=== PATIENT | male | born 1985 | race Native Hawaiian/Other Pacific Islander ===

== ENCOUNTER 2021-10-27 20:24 | Emergency (ER) | payer OTHER ==
[~2021-10-27] VITALS: Ht 182.9 cm; Wt 86.2 kg
[2021-10-28 00:35] VITALS: BP 122/68; TEMP 97.9
== END 2021-10-28 00:35 | disposition home or self-care (01) ==
LOC: ED 20:24
PROC: 0HQGXZZ Repair Left Hand Skin, External Approach (ICD-10-PCS; principal; 2021-10-27)
PROC: 2W3HX1Z Immobilization of Left Thumb using Splint (ICD-10-PCS; 2021-10-27)
DX: S61.012A Laceration without foreign body of left thumb without damage to nail, initial encounter (principal); X50.9XXA Other and unspecified overexertion or strenuous movements or postures, initial encounter; Y93.75 Activity, martial arts; Y92.89 Other specified places as the place of occurrence of the external cause
CPT/HCPCS: 90472; 90715; 99283; J7040